=== PATIENT | male | born 1960 | race Hispanic/Latino ===

== ENCOUNTER 2021-07-12 15:12 | Inpatient (IN) | payer OTHER ==
[~2021-07-12] VITALS: Ht 165.1 cm; Wt 68.0 kg
[2021-07-12 21:47] VITALS: BP 150/83
[2021-07-12] MEDS ORDERED: PANT40TA PO (21:50)
[2021-07-12] MEDS ORDERED: ACET325T51 PO (21:50)
[2021-07-12] MEDS ORDERED: ATOR40TA71 PO (21:50)
[2021-07-12] MEDS ORDERED: INSLAN SQ (21:50)
[2021-07-12] MEDS ORDERED: FERS325 PO (21:50)
[2021-07-12] MEDS ORDERED: AMLO-257 PO (21:50)
[2021-07-12] MEDS ORDERED: GUAIF10 PO (21:50)
[2021-07-12] MEDS ORDERED: CARV6.25 PO (21:50)
[2021-07-12] MEDS ORDERED: AEC81 PO (21:50)
[2021-07-12 22:24] LABS: ABG HCO3 26.2 mmol/L (21.0-28.0); ABG OXYGEN SATURATION 94.9 % (95.0-99.0); ABG PCO2 39 mmHg (35-48)
[2021-07-12] MEDS ORDERED: ONDANSETRON 4MG INJ IVP PRN (22:30)
[2021-07-12] MEDS ORDERED: HYDRALAZINE 20MG/ML VIAL IV PRN (22:30)
[2021-07-12] MEDS ORDERED: HEPARIN 25,000 UNITS/250ML D5W 250 ML IV SCH (22:30)
[2021-07-12] MEDS ORDERED: DOCUSATE SODIUM 100 MG CAP PO PRN (22:30)
[2021-07-12] MEDS ORDERED: ACETAMINOPHEN 325 MG TAB PO PRN (22:30)
[2021-07-12] MEDS ORDERED: ACETAMINOPHEN 650 MG SUPPOSITORY RC PRN (22:30)
[2021-07-12] MEDS ORDERED: HEPARIN 5,000 UNIT VIAL SQ SCH (22:30)
[2021-07-12] MEDS ORDERED: LACTULOSE 20 GM/30 ML UDCUP PO PRN (22:30)
[2021-07-12 23:54] VITALS: BP 141/59
[2021-07-13] MEDS ORDERED: HEPARIN 5,000 UNIT VIAL IV ONE (01:30)
[2021-07-13 04:01] VITALS: BP 126/72
[2021-07-13] MEDS: INSULIN LISPRO 100 UNIT/ML 3ML SQ SCH ×4 (06:11→21:27)
[2021-07-13 06:36] LABS: HEMATOCRIT 34.4 % (42-54); MEAN CORPUSCULAR HEMOGLOBIN 30.9 pg (27.0-33.0); MEAN CORPUSCULAR HGB CONC 35.5 g/dL (32.0-36.0); MEAN CORPUSCULAR VOLUME 87.1 fL (79-99); RED BLOOD CELL COUNT(AUTO) 3.95 MIL/uL (4.50-6.20); RED CELL DISTRIBUTION WIDTH 12.5 % (11.0-15.5); WHITE BLOOD COUNT (AUTO) 7.4 K/uL (4.8-10.8)
[2021-07-13 06:44] LABS: HEMOGLOBIN A1C 8.6 % (4.0-6.0)
[2021-07-13 06:46] LABS: INR 1.04 (0.85-1.15); PROTHROMBIN TIME 11.3 SEC (9.6-11.6)
[2021-07-13 06:47] LABS: PARTIAL THROMBOPLASTIN TIME 72.8 SEC (26.3-35.5)
[2021-07-13 06:54] LABS: ALBUMIN 3.1 g/dL (3.5-5.0); BILIRUBIN,TOTAL 0.4 mg/dL (0.2-1.0); POTASSIUM 4.8 mmol/L (3.5-5.1); TOTAL PROTEIN, SERUM 6.9 g/dL (6.0-8.3)
[2021-07-13 07:52] VITALS: BP 133/94
[2021-07-13] MEDS ORDERED: LABETALOL 20MG SYG IV PRN (08:30)
[2021-07-13] MEDS: GEMFIBROZIL 600 MG TABLET PO SCH ×2 (09:36→17:38)
[2021-07-13 12:00] VITALS: BP 151/72
[2021-07-13 16:00] VITALS: BP 159/73
[2021-07-13] MEDS ORDERED: POTASSIUM CHLORIDE 10MEQ/100ML 100 ML IV PRN (19:30)
[2021-07-13 20:20] VITALS: BP 149/73
[2021-07-13] MEDS: NIACIN 500 MG SRTAB PO SCH (21:27)
[2021-07-13] MEDS: METOPROLOL TARTRATE 25 MG TAB PO SCH (21:27)
[2021-07-13] MEDS: ATORVASTATIN 40 MG TABLET PO SCH (21:27)
[2021-07-14] VITALS (17 sets, daily range): BP systolic 108–149; BP diastolic 47–105
[2021-07-14 05:04] LABS: BASOPHILS % (AUTO) 1.2 % (0.0-5.0); EOSINOPHILS % (AUTO) 4.8 % (0.0-8.0); HEMATOCRIT 33.9 % (42-54); LYMPHOCYTES % (AUTO) 32.2 % (21.0-51.0); MEAN CORPUSCULAR HEMOGLOBIN 30.3 pg (27.0-33.0); MEAN CORPUSCULAR HGB CONC 34.8 g/dL (32.0-36.0); MEAN CORPUSCULAR VOLUME 87.1 fL (79-99); MONOCYTES % (AUTO) 11.6 % (3.0-13.0); NEUTROPHILS % (AUTO) 49.9 % (40.0-77.0); PLATELET COUNT (AUTO) 170 K/uL (130-400); RED BLOOD CELL COUNT(AUTO) 3.89 MIL/uL (4.50-6.20); RED CELL DISTRIBUTION WIDTH 12.6 % (11.0-15.5); WHITE BLOOD COUNT (AUTO) 5.8 K/uL (4.8-10.8)
[2021-07-14 05:10] LABS: INR 0.99 (0.85-1.15); PROTHROMBIN TIME 10.8 SEC (9.6-11.6)
[2021-07-14 05:12] LABS: PARTIAL THROMBOPLASTIN TIME 40.4 SEC (26.3-35.5)
[2021-07-14 05:20] LABS: ALBUMIN 2.9 g/dL (3.5-5.0); BILIRUBIN,TOTAL 0.3 mg/dL (0.2-1.0); CREATININE 1.1 mg/dL (0.5-1.5); POTASSIUM 4.4 mmol/L (3.5-5.1); TOTAL PROTEIN, SERUM 6.6 g/dL (6.0-8.3)
[2021-07-14 05:49] LABS: HEMOGLOBIN A1C 9.5 % (4.0-6.0)
[2021-07-14] MEDS: INSULIN LISPRO 100 UNIT/ML 3ML SQ SCH (06:17)
[2021-07-14] MEDS ORDERED: AMINOCAPROIC ACID 5,000MG VIAL 15,000 MG in 0.9% NACL 500ML IV.SOLN 420 ML IV PRN (08:00)
[2021-07-14] MEDS ORDERED: EPINEPHRINE PF 1MG AMP 10 MG in 0.9% NACL 250ML 240 ML IV PRN ×2 (08:00→14:00)
[2021-07-14] MEDS ORDERED: NOREPINEPHRINE BITARTRATE 8 MG in DEXTROSE 5%-WATER 250 ML IV PRN (08:00)
[2021-07-14] MEDS ORDERED: NOREPINEPHRIN 8MG/250ML NS PMX 250 ML IV SCH (08:30)
[2021-07-14] MEDS: METOPROLOL TARTRATE 25 MG TAB PO SCH (08:31)
[2021-07-14] MEDS: MAGNESIUM 2GM PREMIX 50ML 50 ML IV PRN ×3 (08:40→20:22)
[2021-07-14] MEDS: ASPIRIN 81 MG EC TAB PO SCH (09:00)
[2021-07-14] MEDS ORDERED: MAGNESIUM 2GM PREMIX 50ML 50 ML IV PRN (09:00)
[2021-07-14] MEDS ORDERED: 0.9%NACL 1000ML 1,000 ML IV ONE (09:02)
[2021-07-14] MEDS ORDERED: CEFAZOLIN SODIUM 1 GM VIAL ONE ×2 (09:02)
[2021-07-14] MEDS ORDERED: LIDOCAINE HCL 1% 20 ML VIAL ONE (09:02)
[2021-07-14] MEDS ORDERED: NITROGLYCERIN 50MG/D5W 250ML 1 BOT ONE (09:21)
[2021-07-14] MEDS ORDERED: ESMOLOL HCL 10 MG/ML 10 ML VIAL ONE (11:36)
[2021-07-14] MEDS ORDERED: NOREPINEPHRINE BITARTRATE 1 MG/1 ML ML IV ONE (11:36)
[2021-07-14] MEDS ORDERED: PROTAMINE SULFATE 10 MG/ML 25ML VIAL IV ONE (11:36)
[2021-07-14] MEDS ORDERED: LIDOCAINE PF 100MG/5ML (2%) SYRINGE 5ML ONE (11:36)
[2021-07-14] MEDS ORDERED: EPINEPHRINE PF 1MG AMP ONE (11:36)
[2021-07-14] MEDS ORDERED: AMINOCAPROIC ACID 5,000MG VIAL ONE (11:36)
[2021-07-14] MEDS ORDERED: HEPARIN 10,000 UNIT/10ML (1,000 UNIT/ML) VIAL ONE ×2 (11:36→12:19)
[2021-07-14] MEDS ORDERED: SODIUM BICARB 50MEQ 50ML VIAL 150 ML ONE ×2 (11:36→13:30)
[2021-07-14] MEDS ORDERED: ROCURONIUM 10MG/1ML SYR 10 MG/ML ML ONE (11:37)
[2021-07-14] MEDS ORDERED: PROPOFOL 10 MG/ML 20ML VIAL IV ONE (11:37)
[2021-07-14] MEDS ORDERED: FENTANYL CITRATE PF 50 MCG/1 ML 20ML VIAL IJ ONE (11:37)
[2021-07-14] MEDS ORDERED: MIDAZOLAM HCL 1 MG/ML 2ML VIAL ONE (11:37)
[2021-07-14] MEDS ORDERED: KETAMINE 50MG/ML SYRINGE 50 MG/ML DISP.SYRIN IV ONE (11:38)
[2021-07-14] MEDS ORDERED: CEFAZOLIN SODIUM 2 GM VIAL IV ONE (11:40)
[2021-07-14 12:16] LABS: ABG BASE EXCESS -1.6 mmol/L (-2.0-3.0); ABG HCO3 21.2 mmol/L (21.0-28.0); ABG OXYGEN SATURATION 99.4 % (95.0-99.0); ABG PCO2 30 mmHg (35-48)
[2021-07-14] MEDS ORDERED: AMIODARONE 150MG VIAL ONE (13:08)
[2021-07-14 13:12] LABS: ABG BASE EXCESS -4.7 mmol/L (-2.0-3.0); ABG HCO3 19.5 mmol/L (21.0-28.0); ABG OXYGEN SATURATION 99.6 % (95.0-99.0); ABG PCO2 33 mmHg (35-48)
[2021-07-14] MEDS ORDERED: SODIUM BICARB 50MEQ 50ML VIAL 100 ML ONE (13:30)
[2021-07-14 13:46] LABS: ABG BASE EXCESS -1.7 mmol/L (-2.0-3.0); ABG HCO3 21.4 mmol/L (21.0-28.0); ABG OXYGEN SATURATION 99.6 % (95.0-99.0); ABG PCO2 31 mmHg (35-48)
[2021-07-14] MEDS ORDERED: POTASSIUM PHOS 15 mMOL+NS250ML 250 ML IV PRN (14:00)
[2021-07-14] MEDS ORDERED: ONDANSETRON 4MG INJ IV PRN (14:00)
[2021-07-14] MEDS ORDERED: AMINOCAPROIC ACID 5,000MG VIAL 15,000 MG in 0.9% NACL 250ML 250 ML IV SCH (14:00)
[2021-07-14] MEDS ORDERED: NOREPINEPHRIN 4MG/NS 250ML 250 ML IV PRN (14:00)
[2021-07-14] MEDS ORDERED: MORPHINE 2 MG SYG IV PRN ×2 (14:00)
[2021-07-14] MEDS ORDERED: CALCIUM GLUC 1GM 1 GM in 0.9%NACL 50ML 50 ML IV PRN (14:00)
[2021-07-14] MEDS ORDERED: INSULIN REGULAR, HUMAN 3ML 100 UNIT in 0.9%NACL 100ML 99 ML IV SCH ×2 (14:00)
[2021-07-14] MEDS ORDERED: PROPOFOL 1000 MG/100 ML 100 ML IV PRN (14:00)
[2021-07-14] MEDS ORDERED: GLUCAGON 1MG KIT 1 MG ML IM PRN (14:00)
[2021-07-14] MEDS ORDERED: DEXTROSE 50%-WATER 50 ML DISP.SYRIN IV PRN (14:00)
[2021-07-14] MEDS ORDERED: ALBUMIN (HUMAN) 5% 250 ML IV PRN (14:00)
[2021-07-14] MEDS ORDERED: 0.9% NACL 500ML IV.SOLN 500 ML IV SCH (14:00)
[2021-07-14] MEDS ORDERED: ACETAMINOPHEN 650 MG SUPPOSITORY RC PRN (14:00)
[2021-07-14] MEDS ORDERED: 0.9%NACL 1000ML 1,000 ML IV SCH (14:00)
[2021-07-14] MEDS ORDERED: 0.9%NACL 10ML VIAL IVP PRN (14:00)
[2021-07-14] MEDS ORDERED: ACETAMINOPHEN 325 MG TAB PO PRN (14:00)
[2021-07-14 14:32] LABS: HEMATOCRIT 30.7 % (42-54); MEAN CORPUSCULAR HEMOGLOBIN 29.9 pg (27.0-33.0); MEAN CORPUSCULAR HGB CONC 33.9 g/dL (32.0-36.0); MEAN CORPUSCULAR VOLUME 88.2 fL (79-99); RED BLOOD CELL COUNT(AUTO) 3.48 MIL/uL (4.50-6.20); RED CELL DISTRIBUTION WIDTH 12.6 % (11.0-15.5); WHITE BLOOD COUNT (AUTO) 16.4 K/uL (4.8-10.8)
[2021-07-14 14:40] LABS: ABG BASE EXCESS -0.8 mmol/L (-2.0-3.0); ABG HCO3 21.8 mmol/L (21.0-28.0); ABG OXYGEN SATURATION 97.1 % (95.0-99.0); ABG PCO2 30 mmHg (35-48)
[2021-07-14 14:45] LABS: INR 1.15 (0.85-1.15); MAGNESIUM 1.1 mg/dL (1.80-2.40); PHOSPHORUS 3.4 mg/dL (2.5-4.9); POTASSIUM 3.6 mmol/L (3.5-5.1); PROTHROMBIN TIME 12.4 SEC (9.6-11.6)
[2021-07-14 14:46] LABS: PARTIAL THROMBOPLASTIN TIME 25.6 SEC (26.3-35.5)
[2021-07-14] MEDS ORDERED: ASPIRIN 81MG CHEW TAB NG SCH (15:00)
[2021-07-14] MEDS ORDERED: CEFAZOLIN SODIUM 1 GM VIAL IVP PRN (16:00)
[2021-07-14 16:07] LABS: ABG BASE EXCESS -4.3 mmol/L (-2.0-3.0); ABG HCO3 19.7 mmol/L (21.0-28.0); ABG OXYGEN SATURATION 98.4 % (95.0-99.0); ABG PCO2 32 mmHg (35-48)
[2021-07-14 17:17] LABS: ABG BASE EXCESS -3.1 mmol/L (-2.0-3.0); ABG HCO3 22.5 mmol/L (21.0-28.0); ABG OXYGEN SATURATION 97.5 % (95.0-99.0); ABG PCO2 42 mmHg (35-48)
[2021-07-14 18:27] LABS: ABG BASE EXCESS 2.4 mmol/L (-2.0-3.0); ABG HCO3 27.4 mmol/L (21.0-28.0); ABG PCO2 44 mmHg (35-48)
[2021-07-14] MEDS: CEFAZOLIN SODIUM 1 GM VIAL IV SCH (18:54)
[2021-07-14] MEDS ORDERED: PHARMACY COMMUNICATION MISC SCH (19:30)
[2021-07-14] MEDS: POTASSIUM CHLORIDE 20MEQ/100ML 100 ML IV PRN ×2 (20:13→21:37)
[2021-07-14] MEDS: FAMOTIDINE 20MG VIAL IV SCH (20:31)
[2021-07-14] MEDS: ATORVASTATIN 40 MG TABLET PO SCH (20:31)
[2021-07-14] MEDS: NIACIN 500 MG SRTAB PO SCH (20:32)
[2021-07-14 20:33] LABS: ABG BASE EXCESS 1.4 mmol/L (-2.0-3.0); ABG HCO3 26.1 mmol/L (21.0-28.0); ABG OXYGEN SATURATION 97.7 % (95.0-99.0); ABG PCO2 42 mmHg (35-48)
[2021-07-15] VITALS (93 sets, daily range): BP systolic 98–164; BP diastolic 41–105
[2021-07-15] MEDS: TRAMADOL HCL 50 MG TABLET PO PRN ×3 (00:23→20:46)
[2021-07-15] MEDS: CEFAZOLIN SODIUM 1 GM VIAL IV SCH ×2 (02:06→10:24)
[2021-07-15 03:38] LABS: HEMATOCRIT 27.2 % (42-54); MEAN CORPUSCULAR HEMOGLOBIN 30.9 pg (27.0-33.0); MEAN CORPUSCULAR HGB CONC 34.6 g/dL (32.0-36.0); MEAN CORPUSCULAR VOLUME 89.5 fL (79-99); RED BLOOD CELL COUNT(AUTO) 3.04 MIL/uL (4.50-6.20); RED CELL DISTRIBUTION WIDTH 13.1 % (11.0-15.5); WHITE BLOOD COUNT (AUTO) 8.2 K/uL (4.8-10.8)
[2021-07-15 03:50] LABS: INR 1.05 (0.85-1.15); PROTHROMBIN TIME 11.4 SEC (9.6-11.6)
[2021-07-15 03:51] LABS: PARTIAL THROMBOPLASTIN TIME 26.9 SEC (26.3-35.5)
[2021-07-15 03:54] LABS: CREATININE 1.1 mg/dL (0.5-1.5); MAGNESIUM 2.2 mg/dL (1.80-2.40); PHOSPHORUS 3.5 mg/dL (2.5-4.9); POTASSIUM 4.1 mmol/L (3.5-5.1)
[2021-07-15 04:19] LABS: ABG OXYGEN SATURATION 97.2 % (95.0-99.0); ABG PCO2 44 mmHg (35-48)
[2021-07-15] MEDS: FAMOTIDINE 20MG VIAL IV SCH ×2 (08:46→20:44)
[2021-07-15] MEDS: ASPIRIN 81 MG EC TAB PO SCH (08:47)
[2021-07-15] MEDS: FUROSEMIDE 20MG VIAL IV SCH ×2 (08:47→20:46)
[2021-07-15] MEDS ORDERED: METOPROLOL TARTRATE 25 MG TAB ONE (10:21)
[2021-07-15] MEDS: METOPROLOL TARTRATE 25 MG TAB PO SCH ×2 (10:42→20:45)
[2021-07-15] MEDS: INSULIN HUMULIN R 100 UNIT/ML 3ML SQ SCH (20:11)
[2021-07-15] MEDS: ATORVASTATIN 40 MG TABLET PO SCH (20:45)
[2021-07-15] MEDS: NIACIN 500 MG SRTAB PO SCH (21:00)
[2021-07-16] VITALS (44 sets, daily range): BP systolic 91–144; BP diastolic 39–78
[2021-07-16] MEDS: TRAMADOL HCL 50 MG TABLET PO PRN ×2 (02:41→07:52)
[2021-07-16 04:13] LABS: HEMATOCRIT 29.7 % (42-54); MEAN CORPUSCULAR HEMOGLOBIN 29.8 pg (27.0-33.0); MEAN CORPUSCULAR HGB CONC 32.7 g/dL (32.0-36.0); MEAN CORPUSCULAR VOLUME 91.4 fL (79-99); RED BLOOD CELL COUNT(AUTO) 3.25 MIL/uL (4.50-6.20); RED CELL DISTRIBUTION WIDTH 12.9 % (11.0-15.5); WHITE BLOOD COUNT (AUTO) 9.8 K/uL (4.8-10.8)
[2021-07-16 04:36] LABS: POTASSIUM 3.5 mmol/L (3.5-5.1)
[2021-07-16] MEDS: INSULIN HUMULIN R 100 UNIT/ML 3ML SQ SCH ×5 (07:30→20:26)
[2021-07-16] MEDS: FAMOTIDINE 20MG VIAL IV SCH (07:51)
[2021-07-16] MEDS: ASPIRIN 81 MG EC TAB PO SCH (07:51)
[2021-07-16] MEDS: FUROSEMIDE 20 MG TABLET PO SCH ×2 (07:51→16:17)
[2021-07-16] MEDS: METOPROLOL TARTRATE 25 MG TAB PO SCH ×2 (07:51→20:07)
[2021-07-16] MEDS ORDERED: KCL 20 MEQ ERTAB PO ONE (08:16)
[2021-07-16] MEDS ORDERED: METOPROLOL TARTRATE 25 MG TAB PO SCH (09:00)
[2021-07-16] MEDS ORDERED: FUROSEMIDE 40MG VIAL IV SCH (10:30)
[2021-07-16 10:52] LABS: ABG BASE EXCESS 0.6 mmol/L (-2.0-3.0); ABG HCO3 25.6 mmol/L (21.0-28.0); ABG PCO2 42 mmHg (35-48)
[2021-07-16 12:52] LABS: ABG HCO3 28.4 mmol/L (21.0-28.0); ABG OXYGEN SATURATION 97.1 % (95.0-99.0); ABG PCO2 42 mmHg (35-48)
[2021-07-16] MEDS: HYDROCODONE/ACETAMINOPHEN 5/325 MG TAB PO PRN (16:16)
[2021-07-16] MEDS: NIACIN 500 MG SRTAB PO SCH (20:07)
[2021-07-16] MEDS: FAMOTIDINE 20MG TAB PO SCH (20:07)
[2021-07-16] MEDS: ATORVASTATIN 40 MG TABLET PO SCH (20:07)
[2021-07-16 21:19] LABS: MAGNESIUM 1.5 mg/dL (1.80-2.40); POTASSIUM 4.1 mmol/L (3.5-5.1)
[2021-07-16] MEDS: MAGNESIUM 2GM PREMIX 50ML 50 ML IV PRN (21:26)
[2021-07-17] VITALS (16 sets, daily range): BP systolic 102–143; BP diastolic 49–110
[2021-07-17 04:14] LABS: ABG BASE EXCESS -8.3 mmol/L (-2.0-3.0); ABG OXYGEN SATURATION 98.3 % (95.0-99.0); ABG PCO2 47 mmHg (35-48)
[2021-07-17] MEDS: HYDROCODONE/ACETAMINOPHEN 5/325 MG TAB PO PRN (04:16)
[2021-07-17] MEDS: SODIUM BICARB 50MEQ 50ML VIAL IV PRN ×2 (04:27→04:41)
[2021-07-17] MEDS: POTASSIUM CHLORIDE 20MEQ/100ML 100 ML IV PRN (04:28)
[2021-07-17] MEDS: KCL 20 MEQ ERTAB PO PRN ×2 (04:28→07:43)
[2021-07-17 04:29] LABS: HEMATOCRIT 29.5 % (42-54); MEAN CORPUSCULAR HEMOGLOBIN 29.7 pg (27.0-33.0); MEAN CORPUSCULAR HGB CONC 33.6 g/dL (32.0-36.0); MEAN CORPUSCULAR VOLUME 88.6 fL (79-99); RED BLOOD CELL COUNT(AUTO) 3.33 MIL/uL (4.50-6.20); RED CELL DISTRIBUTION WIDTH 12.4 % (11.0-15.5); WHITE BLOOD COUNT (AUTO) 6.3 K/uL (4.8-10.8)
[2021-07-17 04:36] LABS: CREATININE 1.1 mg/dL (0.5-1.5); MAGNESIUM 1.7 mg/dL (1.80-2.40); POTASSIUM 3.5 mmol/L (3.5-5.1)
[2021-07-17] MEDS: MAGNESIUM 2GM PREMIX 50ML 50 ML IV PRN (05:54)
[2021-07-17] MEDS: INSULIN HUMULIN R 100 UNIT/ML 3ML SQ SCH ×4 (06:25→20:33)
[2021-07-17 06:26] LABS: ABG BASE EXCESS 4.4 mmol/L (-2.0-3.0); ABG HCO3 28.2 mmol/L (21.0-28.0); ABG PCO2 39 mmHg (35-48)
[2021-07-17] MEDS: ASPIRIN 81 MG EC TAB PO SCH (07:43)
[2021-07-17] MEDS: FAMOTIDINE 20MG TAB PO SCH ×2 (07:43→20:32)
[2021-07-17] MEDS: FUROSEMIDE 20 MG TABLET PO SCH ×2 (07:44→16:16)
[2021-07-17] MEDS: METOPROLOL TARTRATE 25 MG TAB PO SCH ×2 (07:44→20:32)
[2021-07-17] MEDS: TRAMADOL HCL 50 MG TABLET PO PRN ×3 (07:51→20:52)
[2021-07-17] MEDS: ENOXAPARIN SODIUM 30 MG/0.3 ML SQ SCH (09:00)
[2021-07-17] MEDS: ATORVASTATIN 40 MG TABLET PO SCH (20:31)
[2021-07-17] MEDS: NIACIN 500 MG SRTAB PO SCH (21:47)
[2021-07-18] VITALS (7 sets, daily range): BP systolic 91–127; BP diastolic 49–71
[2021-07-18 04:16] LABS: HEMATOCRIT 25.6 % (42-54); MEAN CORPUSCULAR HEMOGLOBIN 30.4 pg (27.0-33.0); MEAN CORPUSCULAR HGB CONC 34.8 g/dL (32.0-36.0); MEAN CORPUSCULAR VOLUME 87.4 fL (79-99); RED BLOOD CELL COUNT(AUTO) 2.93 MIL/uL (4.50-6.20); RED CELL DISTRIBUTION WIDTH 12.2 % (11.0-15.5); WHITE BLOOD COUNT (AUTO) 5.9 K/uL (4.8-10.8)
[2021-07-18 04:28] LABS: POTASSIUM 3.4 mmol/L (3.5-5.1)
[2021-07-18] MEDS: TRAMADOL HCL 50 MG TABLET PO PRN ×3 (05:03→21:20)
[2021-07-18] MEDS: INSULIN HUMULIN R 100 UNIT/ML 3ML SQ SCH ×5 (06:12→21:00)
[2021-07-18] MEDS: FAMOTIDINE 20MG TAB PO SCH ×2 (08:21→21:22)
[2021-07-18] MEDS: ASPIRIN 81 MG EC TAB PO SCH (08:21)
[2021-07-18] MEDS: METOPROLOL TARTRATE 25 MG TAB PO SCH ×2 (08:21→21:22)
[2021-07-18] MEDS: FUROSEMIDE 20 MG TABLET PO SCH ×2 (08:21→17:39)
[2021-07-18] MEDS: ENOXAPARIN SODIUM 30 MG/0.3 ML SQ SCH (08:22)
[2021-07-18] MEDS ORDERED: POTASSIUM CHLORIDE 20MEQ/100ML 100 ML IV PRN (09:00)
[2021-07-18] MEDS ORDERED: KCL 20 MEQ ERTAB PO PRN (09:00)
[2021-07-18] MEDS ORDERED: LIDOCAINE HCL-MPF 1% 2ML VIAL IV PRN (09:00)
[2021-07-18] MEDS: POTASSIUM CHLORIDE 10% ELIXIR 20 MEQ/15 ML UDCUP PO PRN ×2 (09:41→12:01)
[2021-07-18] MEDS: ATORVASTATIN 40 MG TABLET PO SCH (21:21)
[2021-07-18] MEDS: NIACIN 500 MG SRTAB PO SCH (21:22)
[2021-07-19] MEDS: TRAMADOL HCL 50 MG TABLET PO PRN ×2 (03:38→09:54)
[2021-07-19 04:05] LABS: BASOPHILS % (AUTO) 0.8 % (0.0-5.0); EOSINOPHILS % (AUTO) 6.2 % (0.0-8.0); HEMATOCRIT 27.6 % (42-54); LYMPHOCYTES % (AUTO) 32.5 % (21.0-51.0); MEAN CORPUSCULAR HEMOGLOBIN 29.7 pg (27.0-33.0); MEAN CORPUSCULAR VOLUME 90.2 fL (79-99); MONOCYTES % (AUTO) 14.4 % (3.0-13.0); NEUTROPHILS % (AUTO) 45.8 % (40.0-77.0); PLATELET COUNT (AUTO) 163 K/uL (130-400); RED BLOOD CELL COUNT(AUTO) 3.06 MIL/uL (4.50-6.20); RED CELL DISTRIBUTION WIDTH 12.1 % (11.0-15.5); WHITE BLOOD COUNT (AUTO) 6.2 K/uL (4.8-10.8)
[2021-07-19 04:08] VITALS: BP 117/70
[2021-07-19 04:19] LABS: ALBUMIN 2.4 g/dL (3.5-5.0); BILIRUBIN,TOTAL 0.7 mg/dL (0.2-1.0); CREATININE 1.1 mg/dL (0.5-1.5); POTASSIUM 5.2 mmol/L (3.5-5.1); TOTAL PROTEIN, SERUM 6.1 g/dL (6.0-8.3)
[2021-07-19] MEDS: INSULIN HUMULIN R 100 UNIT/ML 3ML SQ SCH ×4 (06:27→21:00)
[2021-07-19 08:00] VITALS: BP 111/54
[2021-07-19] MEDS: ASPIRIN 81 MG EC TAB PO SCH (09:06)
[2021-07-19] MEDS: METOPROLOL TARTRATE 25 MG TAB PO SCH ×2 (09:07→21:00)
[2021-07-19] MEDS: FAMOTIDINE 20MG TAB PO SCH ×2 (09:07→22:18)
[2021-07-19] MEDS: FUROSEMIDE 20 MG TABLET PO SCH ×2 (09:07→18:19)
[2021-07-19] MEDS: ENOXAPARIN SODIUM 30 MG/0.3 ML SQ SCH (09:08)
[2021-07-19 12:00] VITALS: BP 116/61
[2021-07-19 16:00] VITALS: BP 124/71
[2021-07-19 19:22] VITALS: BP 106/59
[2021-07-19] MEDS: NIACIN 500 MG SRTAB PO SCH (22:17)
[2021-07-19] MEDS: ATORVASTATIN 40 MG TABLET PO SCH (22:17)
[2021-07-20] VITALS: BP 126/69
[2021-07-20 03:23] LABS: BASOPHILS % (AUTO) 0.8 % (0.0-5.0); EOSINOPHILS % (AUTO) 5.9 % (0.0-8.0); LYMPHOCYTES % (AUTO) 31.5 % (21.0-51.0); MEAN CORPUSCULAR HEMOGLOBIN 30.4 pg (27.0-33.0); MEAN CORPUSCULAR HGB CONC 34.8 g/dL (32.0-36.0); MEAN CORPUSCULAR VOLUME 87.4 fL (79-99); MONOCYTES % (AUTO) 12.9 % (3.0-13.0); NEUTROPHILS % (AUTO) 48.4 % (40.0-77.0); PLATELET COUNT (AUTO) 185 K/uL (130-400); RED BLOOD CELL COUNT(AUTO) 3.09 MIL/uL (4.50-6.20); RED CELL DISTRIBUTION WIDTH 12.1 % (11.0-15.5); WHITE BLOOD COUNT (AUTO) 6.1 K/uL (4.8-10.8)
[2021-07-20 03:37] LABS: ALBUMIN 2.4 g/dL (3.5-5.0); BILIRUBIN,TOTAL 0.5 mg/dL (0.2-1.0); CREATININE 1.2 mg/dL (0.5-1.5); MAGNESIUM 1.4 mg/dL (1.80-2.40); PHOSPHORUS 4.5 mg/dL (2.5-4.9); POTASSIUM 3.9 mmol/L (3.5-5.1); TOTAL PROTEIN, SERUM 6.1 g/dL (6.0-8.3)
[2021-07-20 03:44] LABS: B-TYPE NATRIURETIC PEPTIDE 513 pg/mL (0-100)
[2021-07-20 04:00] VITALS: BP 126/70
[2021-07-20] MEDS: INSULIN HUMULIN R 100 UNIT/ML 3ML SQ SCH ×2 (06:29→11:30)
[2021-07-20 08:15] VITALS: BP 132/65
[2021-07-20] MEDS: ASPIRIN 81 MG EC TAB PO SCH (08:16)
[2021-07-20] MEDS: FUROSEMIDE 20 MG TABLET PO SCH (08:16)
[2021-07-20] MEDS: FAMOTIDINE 20MG TAB PO SCH (08:16)
[2021-07-20] MEDS: ENOXAPARIN SODIUM 30 MG/0.3 ML SQ SCH (08:17)
[2021-07-20] MEDS: METOPROLOL TARTRATE 25 MG TAB PO SCH (08:25)
[2021-07-20 11:50] VITALS: BP 113/68
[2021-07-20] MEDS ORDERED: METO25 PO (13:25)
[2021-07-20] MEDS ORDERED: FURO20TA6 PO (13:25)
== END 2021-07-20 14:47 | disposition home or self-care (01) | DRG 235 ==
LOC: 2DH 21:03 → INTOOBSV 21:03 → OBSVTOIN 21:03 → UNDOADMIN 21:03 → 2CV 07-14 11:23 → 2DH 07-14 11:23 → 2CV 07-14 17:38 → 2CH 07-14 17:38 → 2DH 07-16 13:20 → 2CH 07-16 13:30 → 2DH 07-16 13:30 → 2CH 07-17 16:59
PROVIDERS: ADMIT Internal Medicine Critical Care Medicine; ATTEND Internal Medicine Critical Care Medicine
PROC: 5A1221Z Performance of Cardiac Output, Continuous (ICD-10-PCS; 2021-07-14)
PROC: 021109W Bypass Coronary Artery, Two Arteries from Aorta with Autologous Venous Tissue, Open Approach (ICD-10-PCS; principal; 2021-07-14 11:37)
PROC: 02100Z9 Bypass Coronary Artery, One Artery from Left Internal Mammary, Open Approach (ICD-10-PCS; 2021-07-14 11:37)
PROC: 06BQ4ZZ Excision of Left Saphenous Vein, Percutaneous Endoscopic Approach (ICD-10-PCS; 2021-07-14 11:37)
DX: I21.4 Non-ST elevation (NSTEMI) myocardial infarction (principal); J95.1 Acute pulmonary insufficiency following thoracic surgery; I25.10 Atherosclerotic heart disease of native coronary artery without angina pectoris; I25.5 Ischemic cardiomyopathy; E11.9 Type 2 diabetes mellitus without complications; I10 Essential (primary) hypertension; E78.5 Hyperlipidemia, unspecified; D64.9 Anemia, unspecified; E86.0 Dehydration; E87.70 Fluid overload, unspecified; E78.00 Pure hypercholesterolemia, unspecified; Z90.49 Acquired absence of other specified parts of digestive tract
CPT/HCPCS: 36415; 36600; 71045; 80048; 80053; 80061; 82435; 82803; 82947; 82948; 83036; 83605; 83735; 83880; 84100; 84132; 84295; 85018; 85025; 85027; 85347; 85610; 85730; 86850; 86900; 86901; 86923; 87635; 93005; 93880; 94002; 94010; 97039; A7048; G0378; J0171; J0282; J0690; J1644; J1650; J1815; J1940; J2001; J2250; J2405; J2704; J2720; J3010; J3475; J3480; J3490; J7030; J7040; P9045